=== PATIENT | female | born 1970 | race Two or more races ===

== ENCOUNTER 2018-03-11 12:33 | Emergency (ER) | payer SELFPAY ==
[2018-03-11] MEDS ORDERED: NORMAL SALINE 1000 ML 1,000 ML IV ONE (12:53)
--- NOTE | 2018-03-11 12:54 | ER Document Report ---
ED Medical Screen (RME) - General Chief Complaint: Vaginal Bleeding Stated Complaint: ABDOMINAL PAIN Time Seen by Provider: 03/11/18 12:49 Notes: The patient is a 47-year-old female, past medical history menorrhagia, presents with increasing vaginal bleeding and crampiness. She is now feeling lightheaded. She was started on Provera 2 weeks ago for these symptoms and required a blood transfusion at that time. She soaked through 6 pads last night. PE: Mild tachycardia, mild surpapubic tenderness I have greeted and performed a rapid initial assessment of this patient. A comprehensive ED assessment and evaluation of the patient, analysis of test results and completion of the medical decision making process will be conducted by additional ED providers. TRAVEL OUTSIDE OF THE [place] IN LAST 30 DAYS: No - Related Data Allergies/Adverse Reactions: No Known Allergies Allergy (Unverified 03/11/18 12:34) Physical Exam - Vital signs Vitals: Temp Pulse Resp BP Pulse Ox 99.1 F 101 H 16 100/66 99 03/11/18 12:38 03/11/18 12:38 03/11/18 12:38 03/11/18 12:38 03/11/18 12:38 Course - Vital Signs Vital signs: Temp Pulse Resp BP Pulse Ox 99.1 F 101 H 16 100/66 99 03/11/18 12:38 03/11/18 12:38 03/11/18 12:38 03/11/18 12:38 03/11/18 12:38
[2018-03-11 13:44] LABS: ABSOLUTE BASOPHILS # (AUTO) 0.1 10^3/uL (0.0-0.2); ABSOLUTE LYMPHOCYTES (AUTO) 0.9 10^3/uL (0.5-4.7); ABSOLUTE MONOCYTES (AUTO) 0.7 10^3/uL (0.1-1.4); ABSOLUTE NEUT (AUTO) 10.2 10^3/uL (1.7-8.2); BASOPHILS % (AUTO) 0.5 % (0-2); EOSINOPHILS % (AUTO) 0.2 % (0-6); HEMOGLOBIN 10.2 g/dL (12.0-15.5); LYMPHOCYTES % (AUTO) 7.8 % (13-45); MEAN CORPUSCULAR HEMOGLOBIN 25.3 pg (27.0-33.4); MEAN CORPUSCULAR HGB CONC 33.9 g/dL (32.0-36.0); MEAN CORPUSCULAR VOLUME 75 fl (80-97); MONOCYTES % (AUTO) 5.8 % (3-13); PLATELET COUNT 190 10^3/uL (150-450); RED BLOOD COUNT 4.02 10^6/uL (3.72-5.28); RED CELL DISTRIBUTION WIDTH 34.7 % (11.5-14.0); SEGMENTED NEUTROPHILS % (AUTO) 85.7 % (42-78); TOTAL CELLS COUNTED % (AUTO) 100 %; WHITE BLOOD COUNT 11.8 10^3/uL (4.0-10.5)
[2018-03-11 13:57] LABS: BILIRUBIN,URINE NEGATIVE (NEGATIVE); GLUCOSE, URINE NEGATIVE (NEGATIVE); KETONES,URINE NEGATIVE (NEGATIVE); LEUKOCYTE ESTERASE,URINE NEGATIVE (NEGATIVE); NITRITE,URINE NEGATIVE (NEGATIVE); PROTEIN,URINE >=500 mg/dL (NEGATIVE); URINE SPECIFIC GRAVITY 1.027; UROBILINOGEN,URINE NEGATIVE mg/dL (<2.0)
[2018-03-11 13:58] LABS: APPEARANCE,URINE TURBID; COLOR,URINE RED
--- NOTE | 2018-03-11 14:06 | ER Document Report ---
ED General - General Chief Complaint: Vaginal Bleeding Stated Complaint: ABDOMINAL PAIN Time Seen by Provider: 03/11/18 12:49 Mode of Arrival: Ambulatory Information source: Patient Notes: This is a 47-year-old Swedish-speaking female with a history of iron deficiency anemia presents to the emergency room with lower abdominal pain and associated with heavy menses. Patient states she started her period on the 15th of this month and has had a lot of bleeding since. She states she recently had heavy bleeding requiring transfusions and was placed on control pills by [facility] in [place]. Patient denies fever, chills, nausea, vomiting. Patient denies dizziness. TRAVEL OUTSIDE OF THE [place] IN LAST 30 DAYS: No - HPI Onset: Last week Onset/Duration: Gradual Quality of pain: Dull Severity: Moderate Pain Level: 3 Associated symptoms: denies: Chest pain, Nausea, Shortness of breath Exacerbated by: Denies Relieved by: Denies Similar symptoms previously: Yes Recently seen / treated by doctor: Yes - Related Data Allergies/Adverse Reactions: No Known Allergies Allergy (Verified 03/11/18 12:54) Past Medical History - General Information source: Patient - Social History Smoking Status: Never Smoker Cigarette use (# per day): No Chew tobacco use (# tins/day): No Frequency of alcohol use: None Drug Abuse: None Lives with: Family Family History: None Patient has suicidal ideation: No Patient has homicidal ideation: No - Past Medical History Cardiac Medical History: Reports: None Pulmonary Medical History: Reports: None EENT Medical History: Reports: None Neurological Medical History: Reports: None Endocrine Medical History: Reports: None Renal/ Medical History: Reports: None. Denies: Hx Peritoneal Dialysis Malignancy Medical History: Reports: None GI Medical History: Reports: None Musculoskeltal Medical History: Reports None Skin Medical History: Reports None Psychiatric Medical History: Reports: None Traumatic Medical History: Reports: None Infectious Medical History: Reports: None Past Surgical History: Reports: Other - Breast cyst removal Review of Systems - Review of Systems Constitutional: denies: Chills, Fever EENT: No symptoms reported Cardiovascular: No symptoms reported Respiratory: No symptoms reported Gastrointestinal: No symptoms reported Genitourinary: See HPI Female Genitourinary: See HPI Musculoskeletal: No symptoms reported Skin: No symptoms reported Hematologic/Lymphatic: No symptoms reported Neurological/Psychological: No symptoms reported Physical Exam - Vital signs Vitals: Temp Pulse Resp BP Pulse Ox 99.1 F 101 H 16 100/66 99 03/11/18 12:38 03/11/18 12:38 03/11/18 12:38 03/11/18 12:38 03/11/18 12:38 Notes: Physical exam: GENERAL: 37-year-old female, alert and oriented 3, no acute distress HEAD: Atraumatic, normocephalic. EYES: Pupils equal round and reactive to light, extraocular movements intact, sclera anicteric, conjunctiva are normal. ENT: TMs normal, nares patent, oropharynx clear without exudates. Moist mucous membranes. NECK: Normal range of motion, supple without obvious mass or JVD. LUNGS: Breath sounds clear to auscultation bilaterally and equal. No wheezes rales or rhonchi. HEART: Regular rate and rhythm without murmurs, rubs or gallops. ABDOMEN: Soft, normoactive bowel sounds. Suprapubic tenderness to palpation. No guarding, no rebound. No masses appreciated. EXTREMITIES: Normal range of motion, no pitting or edema. No clubbing or cyanosis. NEUROLOGICAL: Cranial nerves II through XII grossly intact. Normal speech, moving all extremities. PSYCH: Normal mood, normal affect. SKIN: Warm, Dry, normal turgor, no rashes or lesions noted. Course - Re-evaluation Re-evalutation: 03/11/18 20:08 I did discuss the findings of the ultrasound with the patient. I encouraged her to continue with the hormone replacement pills in an attempt to regulate her periods. I did tell her that the fibroids may make her prone to heavier bleeding. I also told her it is important to follow-up with a school teacher because there are other modalities and treatments for her bleeding. Otherwise, her vital signs are stable and her lab are stable. She is to continue iron supplementation. - Vital Signs Vital signs: Temp Pulse Resp BP Pulse Ox 99.1 F 101 H 16 100/66 99 03/11/18 12:38 03/11/18 12:38 03/11/18 12:38 03/11/18 12:38 03/11/18 12:38 - Laboratory Result Diagrams: 03/11/18 13:10 03/11/18 14:07 Laboratory results interpreted by me: 03/11/18 03/11/18 13:10 13:10 WBC 11.8 H Hgb 10.2 L Hct 30.0 L MCV 75 L MCH 25.3 L RDW 34.7 H Seg Neutrophils % 85.7 H Lymphocytes % 7.8 L Absolute Neutrophils 10.2 H Urine Protein >=500 H Urine Blood SMALL H - Diagnostic Test Radiology reviewed: Image reviewed, Reports reviewed - Transvaginal ultrasound shows a fibroid uterus, and the endometrial stripe is slightly thickened. Discharge - Discharge Clinical Impression: MENSTRUAL MENORRHAGIA Condition: Stable Disposition: HOME, SELF-CARE Additional Instructions: As we discussed, your blood counts look good. I want you to continue with the iron. I do want you to continue with the hormone replacement pills: This is an attempt to regulate your periods. If it does not work, there are other things that the school teacher can do for this abnormal uterine bleeding. The ultrasound does show a fibroid which will make you more prone to painful periods with a lot of bleeding. I do want you to bring a copy of the ultrasound report as well as the disc itself to the school teacher when you see them. Take ibuprofen or Naprosyn for pain. Take the Zofran for nausea. Return to the emergency room for worsening bleeding, feeling faint or any concerns or getting worse. Referrals: MARY MADSEN MD [ACTIVE STAFF] - Follow up as needed (This is the number the [facility] at the [facility]) [facility] [Provider Group] - Follow up as needed (This is the number for the [facility] in [facility])
[2018-03-11 14:18] LABS: ANISOCYTOSIS 3+; OVALOCYTES 2+; PLATELET COMMENT ADEQUATE; POIKILOCYTOSIS 2+; POLYCHROMASIA 1+
[2018-03-11 14:47] LABS: ALANINE AMINOTRANSFERASE 27 U/L (9-52); ALKALINE PHOSPHATASE 64 U/L (38-126); ANION GAP 13 (5-19); ASPARTATE AMINO TRANSFERASE 20 U/L (14-36); BILIRUBIN,DIRECT 0.3 mg/dL (0.0-0.4); BILIRUBIN,TOTAL 0.6 mg/dL (0.2-1.3); BLOOD UREA NITROGEN 13 mg/dL (7-20); CALCIUM 8.6 mg/dL (8.4-10.2); CARBON DIOXIDE 25 mmol/L (22-30); CHLORIDE 101 mmol/L (98-107); GLUCOSE 110 mg/dL (75-110); POTASSIUM 3.7 mmol/L (3.6-5.0); SODIUM 138.5 mmol/L (137-145)
[2018-03-11] MEDS ORDERED: KETOROLAC TROMETHAMINE INJ/PF 30 MG/1 ML SDV IV ONE (15:12)
--- NOTE | 2018-03-11 17:15 | RADIOLOGY REPORT (SQ) ---
EXAM DESCRIPTION: U/S NON OB PEL TV W/DOPPLER COMPLETED DATE/TIME: 03/11/2018 4:43 pm REASON FOR STUDY: uterine pain and bleeding COMPARISON: None. TECHNIQUE: Dynamic and static grayscale images acquired of the pelvis via transvaginal approach and recorded on PACS. Additional selected color Doppler and spectral images recorded. LIMITATIONS: None. FINDINGS: UTERUS: Enlarged uterus. Large fibroid of the fundus, 8.5 cm greatest diameter. ENDOMETRIAL STRIPE: Difficult to visualize. Appears thickened, 1.7 cm in diameter. No fluid. CERVIX: No nabothian cysts. RIGHT OVARY AND DOPPLER: Normal size. Contains 2.3 cm cyst. LEFT OVARY AND DOPPLER: Could not be visualized. FREE FLUID: None noted. OTHER: No other significant finding. MEASUREMENTS: UTERUS: 13.7 x 9.5 x 8.1 cm. Contains 7.3 x 8.5 x 6.5 cm slightly hyperechoic mass likely fibroid. ENDOMETRIAL STRIPE: 1.7 cm RIGHT OVARY: 3.0 x 2.2 x 1.8 cm Cyst 2.3 x 1.5 x 1.0 cm. LEFT OVARY: Not visualized peer IMPRESSION: NORMAL TRANSVAGINAL PELVIC ULTRASOUND. TECHNICAL DOCUMENTATION: JOB ID: [id number] [employer]- All Rights Reserved Rev-02/06 Reading location - IP/workstation name: [email or web address]
[2018-03-11] MEDS ORDERED: ONDANSETRON ODT 4 MG TAB (6 TAB/ER DISP) PO PRN (18:36)
[2018-03-11 18:44] VITALS: BP 138/91
== END 2018-03-11 18:43 | disposition home or self-care (01) ==
LOC: ER 12:33
DX: N92.0 Excessive and frequent menstruation with regular cycle (principal); D25.9 Leiomyoma of uterus, unspecified; D50.9 Iron deficiency anemia, unspecified; Z79.899 Other long term (current) drug therapy; R10.30 Lower abdominal pain, unspecified
CPT/HCPCS: 99284; 96360; 86900; 86901; 36415; 86850; 85025; 81025; 80053; 81001; 76830; 93976; J1885; J7030